=== PATIENT | male | born 1965 | race Hispanic/Latino ===

== ENCOUNTER 2017-07-29 21:50 | Emergency (ER) | payer OTHER ==
[~2017-07-29] VITALS: Ht 170.2 cm; Wt 83.5 kg
--- OUTSIDE RECORDS SUMMARY | 2017-07-29 21:53 | XMS REPORT ---
Author Author [facility] Address Unknown Phone Unavailable Care Team Providers Care Security Management Specialist Name Role Phone Unavailable Unavailable Problems This patient has no known problems. Allergies, Adverse Reactions, Alerts This patient has no known allergies or adverse reactions. Medications This patient has no known medications. Encounters Start Date/Time End Date/Time Encounter Type Admission Type Attending Clinicians Care Facility Care Department Encounter ID 2016-10-03 00:00:00 2016-10-03 00:00:00 Outpatient [facility] [id number] 2016-07-17 00:00:00 2016-07-17 00:00:00 Outpatient [facility] [id number]
== END 2017-07-29 23:10 | disposition home or self-care (01) ==
LOC: FSED 21:50
DX: R07.89 Other chest pain (principal); M54.9 Dorsalgia, unspecified; G89.29 Other chronic pain; F17.210 Nicotine dependence, cigarettes, uncomplicated
CPT/HCPCS: 71046; 99283

== ENCOUNTER 2018-05-23 14:11 | Observation (INO) | payer OTHER ==
[~2018-05-23] VITALS: Ht 170.2 cm; Wt 83.5 kg
--- OUTSIDE RECORDS SUMMARY | 2018-05-23 14:13 | XMS REPORT | Continuity of Care Document ---
Author Author [facility] Address Unknown Phone Unavailable Problems Problem Status Onset Date Classification Date Reported Comments Source Discharge Diagnosis: Back pain, chronic 07/15/2013 07/18/2013 [facility] HEAD PAIN Active 07/15/2013 [facility] 338.4 CHRONIC PAIN SYNDROME Active 07/07/2013 [facility] Acid reflux Active Problem 07/18/2013 [facility] Cholecystectomy Resolved Problem 07/18/2013 [facility] Chronic pain Active Problem 07/18/2013 [facility] Lumbar spinal fusion Resolved Problem 07/18/2013 [facility] CHRONIC PAIN SYNDROME Active [facility] Medications Medication Details Route Status Patient Instructions Ordering Provider Order Date Source Sulfamethoxazole 800 MG / Trimethoprim 160 MG Oral Tablet [Bactrim] 1 tab, PO, BID, # 20 tab, 0 Refill(s) Active 07/15/2013 [facility] Acetaminophen 325 MG / Hydrocodone Bitartrate 5 MG Oral Tablet [[place] 5/325] 1-2 tab, PO, Q4-6H, Pain, # 20 tab, 0 Refill(s) Active 07/15/2013 [facility] Acetaminophen 325 MG / Hydrocodone Bitartrate 5 MG Oral Tablet [[place] 5/325] 1-2 tab, PO, Q4-6H, Pain, # 12 tab, 0 Refill(s) Active 07/15/2013 [facility] Dilaudid 1.5 mg, Route: IM, ONCE, Dosing Weight 81.818, kg, Start date: 07/15/13 6:35:00, Stop date: 07/15/13 6:35:00 Inactive 07/15/2013 [facility] Nexium 40 mg, Route: PO, Daily, Dosing Weight 81.818, kg, Start date: 07/14/13 9:00:00, Duration: 30 day, Stop date: 08/12/13 9:00:00 No Longer Active 07/14/2013 [facility] Protonix 40 mg, 1 tab, Route: PO, Drug form: ECTAB, Daily, Start date: 07/14/13 9:00:00, Duration: 30 day, Stop date: 08/12/13 9:00:00Notes: Tablet should not be chewed or crushed. (Same as: Protonix) Inactive 07/14/2013 [facility] Ibuprofen 400 MG Oral Tablet 800 mg, 2 tab, Route: PO, Drug form: TAB, Q8H, Dosing Weight 81.818, kg, Start date: 07/14/13 0:00:00, Duration: 30 day, Stop date: 08/12/13 16:00:00Notes: (Same as: Motrin) "Do Not Crush" Give with food. Inactive 07/14/2013 [facility] 10 ML Cefazolin 100 MG/ML Prefilled Syringe 2 gm, 100 mL, Route: IVPB, Drug form: INJ, Q8H, Dosing Weight 81.818, kg, Start date: 07/13/13 19:30:00, Duration: 1 doses or times, Stop date: 07/13/13 19:30:00Notes: Same as: Ancef Inactive 07/14/2013 [facility] Hydromorphone 2.5 mg, 2.5 mL, Route: PO, Drug form: INJ, Q8H, Dosing Weight 81.818, kg, PRN as needed for pain, Start date: 07/13/13 16:46:00, Duration: 30 day, Stop date: 08/12/13 16:45:00 No Longer Active 07/13/2013 [facility] Morphine 30 mg, 30 mL, Route: IV, Initial Loading Dose: 2 mg, LITHOPRESS OPERATOR Dose: 1 mg, LITHOPRESS OPERATOR Lockout: 10 minutes, Continuous Basal Rate: 0 mg, 4 Hour Limit (In MG): 28, Drug Form: INJ, Continuous, Start date: 07/13/13 16: 30:00, Duration: 30 day, Stop date: 08/12/13 16:2...Notes: Dose: Delay: Basal rate: 4hr limit: (Same as:Addie-Trena) No Longer Active 07/13/2013 [facility] Acetaminophen 650 mg, 2 tab, Route: PO, Drug form: TAB, Q6H, Dosing Weight 81.818, kg, PRN Pain/Fever, Start date: 07/13/13 16:21:00, Duration: 30 day, Stop date: 08/12/13 16:20:00, fever & painNotes: Do not exceed 4 gm/day. (Same as: Tylenol) No Longer Active 07/13/2013 [facility] Zofran 4 mg, 2 mL, Route: IV, Drug form: INJ, Q8H, Dosing Weight 81.818, kg, PRN Nausea, Start date: 07/13/13 16:21:00, Duration: 30 day, Stop date: 08/12/13 16:20:00Notes: (Same as: Zofran) No Longer Active 07/13/2013 [facility] Acetaminophen 325 MG / Hydrocodone Bitartrate 10 MG Oral Tablet [[place] 10/325] 1 tab, Route: PO, Drug Form: TAB, Dosing Weight 81.818, kg, Q4H, PRN Pain, Start date: 07/13/13 16:21:00, Duration: 30 day, Stop date: 08/12/13 16:20:00Notes: Do not exceed 4gm/day of acetaminophen. (Same as: [place] 325/10) No Longer Active 07/13/2013 [facility] 1/2NS + KCL 20mEq/L 1000ml (Premix) 1,000 mL 1,000 mL, Rate: 75 ml/hr, Infuse over: 13.3 hr, Route: IV, Dosing Weight 81.818 kg, Total Volume: 1,000, Start date: 07/13/13 16:21:00, Duration: 30 day, Stop date: 08/12/13 16:20:00 No Longer Active 07/13/2013 [facility] Robinul 0.1 mg, Route: IV, ONCE, Dosing Weight 81.818, kg, Start date: 07/13/13 16:15:00, Stop date: 07/13/13 16:15:00 Inactive 07/13/2013 [facility] Acetaminophen 21.7 MG/ML / Hydrocodone Bitartrate 0.5 MG/ML Oral Solution 15 ml, Route: PO, Drug Form: SOLN, Dosing Weight 81.818, kg, Q4H, PRN Pain, Start date: 07/13/13 15:44:00, Duration: 30 day, Stop date: 08/12/13 15:43:00Notes: Do not exceed 4gm/day of acetaminophen. (Same as: [place] 325/7.5) Inactive 07/13/2013 [facility] Acetaminophen 1,000 mg, Route: IVPB, Drug form: INJ, ONCE, Dosing Weight 81.818, kg, PRN Pain Score 1-3, Start date: 07/13/13 15:44:00, Duration: 1 doses or times, Stop date: Limited # of times Inactive 07/13/2013 [facility] Naloxone 0.04 mg, 0.1 mL, Route: IVP, Drug form: INJ, Q2MIN, Dosing Weight 81.818, kg, PRN Narcotic Reversal, Start date: 07/13/13 15:44:00, Duration: 8 doses or times, Stop date: Limited # of timesNotes: (Same as: Narcan) Inactive 07/13/2013 [facility] Flumazenil 0.2 mg, 2 mL, Route: IVP, Drug form: INJ, PRN, Dosing Weight 81.818, kg, PRN Benzodiazepine Reversal, Initial dose, Start date: 07/13/13 15:44:00, Duration: 30 day, Stop date: 08/12/13 15:43:00Notes: (Same as: Romazicon) Inactive 07/13/2013 [facility] Ondansetron 4 mg, Route: IVP, ONCE, Dosing Weight 81.818, kg, PRN Nausea & Vomiting, Start date: 07/13/13 15:44:00 Inactive 07/13/2013 [facility] Unknown Home Medication Refill(s) 0 No Longer Active 07/13/2013 [facility] ibuprofen 800 mg oral tablet 0 Refill(s) Active 07/13/2013 [facility] Ibuprofen 0 Refill(s) Active 07/13/2013 [facility] Clonidine 0 Refill(s) No Longer Active 07/13/2013 [facility] Baclofen 0 Refill(s) No Longer Active 07/13/2013 [facility] hydromorphone 4 mg oral tablet 0 Refill(s) Active 07/11/2013 [facility] Nexium PO, Daily, 0 Refill(s) No Longer Active 07/07/2013 [facility] Allergies, Adverse Reactions, Alerts Substance Category Reaction Severity Reaction type Status Date Reported Comments Source Phenergan Assertion Drug allergy Active [facility] Immunizations Immunization Date Given Site Status Last Updated Comments Source Results Order Name Results Value Reference Range Date Interpretation Comments Source HEMATOLOGY Segs-Bands # 8.5 K/CMM 1.5 - 8.1 07/15/2013 [facility] HEMATOLOGY Basophils 0.4 % 0.0 - 1.0 07/15/2013 [facility] HEMATOLOGY Eosinophils 0.6 % 0.0 - 4.0 07/15/2013 [facility] HEMATOLOGY Segs 73.3 % 45.0 - 75.0 07/15/2013 [facility] HEMATOLOGY Monocytes # 0.3 K/CMM 0.0 - 0.8 07/15/2013 [facility] HEMATOLOGY Lymphocytes # 2.6 K/CMM 1.0 - 5.5 07/15/2013 [facility] HEMATOLOGY Monocytes 3.0 % 2.0 - 12.0 07/15/2013 [facility] HEMATOLOGY Lymphocytes 22.7 % 20.0 - 40.0 07/15/2013 [facility] HEMATOLOGY Basophils # 0.0 K/CMM 0.0 - 0.2 07/15/2013 [facility] HEMATOLOGY Eosinophils # 0.1 K/CMM 0.0 - 0.5 07/15/2013 [facility] Sed Rate 24 mm/h 0 - 15 07/15/2013 [facility] MCHC 34.3 g/dL 32.0 - 36.0 07/15/2013 [facility] MCH 34.0 pg 27.0 - 31.0 07/15/2013 [facility] Platelet 264 K/CMM 133 - 450 07/15/2013 [facility] RDW 13.6 % 11.5 - 14.5 07/15/2013 [facility] MPV 7.8 fL 7.4 - 10.4 07/15/2013 [facility] MCV 99.1 fL 80.0 - 94.0 07/15/2013 [facility] WBC 11.6 K/CMM 3.7 - 10.4 07/15/2013 [facility] Hct 34.7 % 42.0 - 54.0 07/15/2013 [facility] HEMATOLOGY RBC 3.50 M/CMM 4.70 - 6.10 07/15/2013 [facility] Hgb 11.9 g/dL 14.0 - 18.0 07/15/2013 [facility] BLOOD BANK RESULTS Antibody Scrn Negative (07/07/13 4:35 PM) 07/07/2013 [facility] BLOOD BANK RESULTS ABO/Rh B NEG 07/07/2013 [facility] ELECTROLYTES AGAP 9.6 meq/L 10.0 - 20.0 07/07/2013 [facility] ELECTROLYTES eGFR 112 mL/min/1.73m2 07/07/2013 1Result Comment: The eGFR is calculated using the CKD-EPI formula. In most young, healthy individuals the eGFR will be >90 mL/min/1.73m2. The eGFR declines with age. An eGFR of 60-89 may be normal in some populations, particularly the elderly, for whom the CKD-EPI formula has not been extensively validated. Use of the eGFR is not recommended in the following populations: Individuals with unstable creatinine concentrations, including patients and those with serious co-morbid conditions. Patients with extremes in muscle mass or diet. The data above are obtained from the National Kidney Disease Education Program (NKDEP) which additionally recommends that when the eGFR is used in patients with extremes of body mass index for purposes of drug dosing, the eGFR should be multiplied by the estimated BMI. [facility] ELECTROLYTES Calcium Lvl 9.0 mg/dL 8.5 - 10.5 07/07/2013 [facility] ELECTROLYTES Potassium Lvl 3.6 meq/L 3.5 - 5.1 07/07/2013 [facility] ELECTROLYTES Chloride Lvl 112 meq/L 95 - 109 07/07/2013 [facility] ELECTROLYTES CO2 23 meq/L 24 - 32 07/07/2013 [facility] ELECTROLYTES Creatinine Lvl 0.7 mg/dL 0.5 - 1.4 07/07/2013 [facility] ELECTROLYTES Sodium Lvl 141 meq/L 135 - 145 07/07/2013 [facility] ELECTROLYTES Glucose Lvl 102 mg/dL 70 - 99 07/07/2013 2Interpretive Data: Adult reference range values reflect the clinical guidelines of the [place] [employer]. [facility] ELECTROLYTES BUN 3 mg/dL 7 - 22 07/07/2013 [facility] HEMATOLOGY Monocytes 4.2 % 2.0 - 12.0 07/07/2013 [facility] HEMATOLOGY Segs 61.8 % 45.0 - 75.0 07/07/2013 [facility] HEMATOLOGY Lymphocytes 33.1 % 20.0 - 40.0 07/07/2013 [facility] HEMATOLOGY Eosinophils 0.6 % 0.0 - 4.0 07/07/2013 [facility] Segs-Bands # 4.2 K/CMM 1.5 - 8.1 07/07/2013 [facility] Lymphocytes # 2.2 K/CMM 1.0 - 5.5 07/07/2013 [facility] HEMATOLOGY Basophils 0.3 % 0.0 - 1.0 07/07/2013 [facility] HEMATOLOGY Monocytes # 0.3 K/CMM 0.0 - 0.8 07/07/2013 [facility] HEMATOLOGY Eosinophils # 0.0 K/CMM 0.0 - 0.5 07/07/2013 [facility] Basophils # 0.0 K/CMM 0.0 - 0.2 07/07/2013 [facility] PTT 28.1 s 22.9 - 35.8 07/07/2013 4Interpretive Data: Heparin Therapeutic Range: 57 - 92 Seconds [facility] PT 13.2 s 12.0 - 14.7 07/07/2013 [facility] INR 1.01 0.85 - 1.17 07/07/2013 3Interpretive Data: RECOMMENDED RANGES FOR PROTIME INR: 2.0-3.0 for most medical and surgical thromboembolic states. 2.5-3.5 for artificial heart valves and recurrent embolism. INR SHOULD BE USED ONLY FOR PATIENTS ON STABLE ANTICOAGULANT THERAPY. [facility] Platelet 233 K/CMM 133 - 450 07/07/2013 [facility] MCHC 35.0 g/dL 32.0 - 36.0 07/07/2013 [facility] RDW 13.5 % 11.5 - 14.5 07/07/2013 [facility] MCV 96.5 fL 80.0 - 94.0 07/07/2013 [facility] MCH 33.8 pg 27.0 - 31.0 07/07/2013 [facility] MPV 8.5 fL 7.4 - 10.4 07/07/2013 [facility] Hct 34.3 % 42.0 - 54.0 07/07/2013 [facility] Hgb 12.0 g/dL 14.0 - 18.0 07/07/2013 [facility] RBC 3.55 M/CMM 4.70 - 6.10 07/07/2013 [facility] WBC 6.8 K/CMM 3.7 - 10.4 07/07/2013 [facility] IMMUNOLOGY HIV 1/2 Ab Negative *NA* (07/07/13 4:35 PM) Negative 07/07/2013 [facility] Vital Signs Vital Sign Value Date Comments [facility] Systolic (mm Hg) 129 07/15/2013 [facility] Diastolic (mm Hg) 82 07/15/2013 [facility] Heart Rate 57 07/15/2013 [facility] Respitory Rate 18 07/15/2013 [facility] Temperature Oral (F) 98.2 F 07/15/2013 [facility] Height 170.18 cm 07/15/2013 [facility] BMI Calculated 28.25 07/15/2013 [facility] Weight 81.818 07/15/2013 [facility] Heart Rate 64 07/15/2013 [facility] Diastolic (mm Hg) 80 07/15/2013 [facility] Temperature Oral (F) 98.4 F 07/15/2013 [facility] Respitory Rate 16 07/15/2013 [facility] Systolic (mm Hg) 145 07/15/2013 [facility] Diastolic (mm Hg) 62 07/14/2013 [facility] Systolic (mm Hg) 108 07/14/2013 [facility] Temperature Oral (F) 97.9 F 07/14/2013 [facility] Respitory Rate 16 07/14/2013 [facility] Heart Rate 40 07/14/2013 [facility] Temperature Oral (F) 98.0 F 07/14/2013 [facility] Respitory Rate 16 07/14/2013 [facility] Heart Rate 44 07/14/2013 [facility] Systolic (mm Hg) 110 07/14/2013 [facility] Diastolic (mm Hg) 64 07/14/2013 [facility] Systolic (mm Hg) 96 07/14/2013 [facility] Respitory Rate 16 07/14/2013 [facility] Heart Rate 43 07/14/2013 [facility] Temperature Oral (F) 97.8 F 07/14/2013 [facility] Diastolic (mm Hg) 46 07/14/2013 [facility] BMI Calculated 28.25 07/14/2013 [facility] Weight 81.818 07/14/2013 [facility] Height 170.18 cm 07/14/2013 [facility] Weight 81.818 07/07/2013 [facility] BMI Calculated 28.25 07/07/2013 [facility] Height 170.18 cm 07/07/2013 [facility] Encounters Location Location Details Encounter Type Encounter Number Reason For Visit Attending Provider ADM Date DC Date Status Source [facility] Inpatient [id number] Manuel Isaac 07/13/2013 07/14/2013 [facility] [id number] Bintamichael Hernandez 07/15/2013 07/15/2013 [facility] Procedures Procedure Code Date Perfomer Comments Source Excision of gallbladder [id number] [facility] Intrathecal injection [id number] [facility] Lumbar spinal fusion [id number] [facility]
--- OUTSIDE RECORDS SUMMARY | 2018-05-23 14:13 | XMS REPORT | Summary of Care ---
Author Organization Unknown Address Unknown Phone Unavailable Encounter JEANNIE Cabral(NIA) [id number] Date(s): 07/15/13 - 07/15/[address] Discharge Diagnosis: Back pain, chronic Discharge Disposition: Home Physician Attending: Binta Hernandez MD Reason for Visit HEAD PAIN Vital Signs Most recent to 1 2 oldest [Reference Range]: Height 170.18 cm (07/15/13 4:43 AM) Temperature Oral 98.2 DegF 98.4 DegF [96.4-99.1 DegF] (07/15/13 9:46 AM) (07/15/13 4:43 AM) Systolic Blood 129 mmHg 145 mmHg Pressure [90-140 (07/15/13 9:46 AM) *HI* mmHg] (07/15/13 4:43 AM) Diastolic Blood 82 mmHg 80 mmHg Pressure [60-90 (07/15/13 9:46 AM) (07/15/13 4:43 AM) mmHg] Respiratory Rate 18 BRMIN 16 BRMIN [14-20 BRMIN] (07/15/13 9:46 AM) (07/15/13 4:43 AM) Peripheral Pulse 57 bpm 64 bpm Rate [60-100 bpm] *LOW* (07/15/13 4:43 AM) (07/15/13 9:46 AM) Weight 81.818 kg (07/15/13 4:43 AM) Body Mass Index 28.25 m2 (07/15/13 4:43 AM) Problem List Condition Effective Dates Status Health Status Informant Acid Active reflux(Confirmed) Cholecystectomy(Conf Resolved irmed) Chronic Active pain(Confirmed) Lumbar spinal Resolved fusion(Confirmed) Allergies, Adverse Reactions, Alerts Substance Reaction Severity Status Phenergan Active Medications Bactrim DS oral tablet 1 tab, PO, BID, # 20 tab, 0 Refill(s) Start Date: 07/15/13 Stop Date: 07/25/13 Status: Ordered Dilaudid 1.5 mg, Route: IM, ONCE, Dosing Weight 81.818, kg, Start date: 07/15/13 6:35:00, Stop date: 07/15/13 6:35:00 Start Date: 07/15/13 Stop Date: 07/15/13 Status: Completed [place] 5/325 oral tablet 1-2 tab, PO, Q4-6H, Pain, # 20 tab, 0 Refill(s) Start Date: 07/15/13 Stop Date: 07/20/13 Status: Ordered [place] 5/325 oral tablet 1-2 tab, PO, Q4-6H, Pain, # 12 tab, 0 Refill(s) Start Date: 07/15/13 Stop Date: 07/20/13 Status: Ordered Results HEMATOLOGY Most recent to 1 oldest [Reference Range]: WBC [3.7-10.4 K/CMM] 11.6 K/CMM *HI* (07/15/13 6:55 AM) RBC [4.70-6.10 3.50 M/CMM M/CMM] *LOW* (07/15/13 6:55 AM) Hgb [14.0-18.0 g/dL] 11.9 g/dL *LOW* (07/15/13 6:55 AM) Hct [42.0-54.0 %] 34.7 % *LOW* (07/15/13 6:55 AM) MCV [80.0-94.0 fL] 99.1 fL *HI* (07/15/13 6:55 AM) MCH [27.0-31.0 pg] 34.0 pg *HI* (07/15/13 6:55 AM) MCHC [32.0-36.0 34.3 g/dL g/dL] (07/15/13 6:55 AM) RDW [11.5-14.5 %] 13.6 % (07/15/13 6:55 AM) Platelet [133-450 264 K/CMM K/CMM] (07/15/13 6:55 AM) MPV [7.4-10.4 fL] 7.8 fL (07/15/13 6:55 AM) Segs [45.0-75.0 %] 73.3 % (07/15/13 6:55 AM) Lymphocytes 22.7 % [20.0-40.0 %] (07/15/13 6:55 AM) Monocytes [2.0-12.0 3.0 % %] (07/15/13 6:55 AM) Eosinophils [0.0-4.0 0.6 % %] (07/15/13 6:55 AM) Basophils [0.0-1.0 0.4 % %] (07/15/13 6:55 AM) Segs-Bands # 8.5 K/CMM [1.5-8.1 K/CMM] *HI* (07/15/13 6:55 AM) Lymphocytes # 2.6 K/CMM [1.0-5.5 K/CMM] (07/15/13 6:55 AM) Monocytes # [0.0-0.8 0.3 K/CMM K/CMM] (07/15/13 6:55 AM) Eosinophils # 0.1 K/CMM [0.0-0.5 K/CMM] (07/15/13 6:55 AM) Basophils # [0.0-0.2 0.0 K/CMM K/CMM] (07/15/13 6:55 AM) Sed Rate [0-15 24 mm/hr mm/hr] *HI* (07/15/13 6:55 AM) Medications Administered During Your Visit No data available for this section Immunizations No data available for this section Social History Social History Type Response Alcohol Use: Never, Has alcohol use interfered with work or home life? No, Do you ever drink more than intended? No, Has anyone been hurt or at risk by your drinking? No, Ready to change: No, Concerns about alcohol use in household: No Smoking Status Current every day smoker, Type: Cigarettes, Previous treatment: None, Ready to change: No, Concerns about tobacco use in household: No, Exposure to Tobacco Smoke None, Cigarette Smoking Last 365 Days Yes, Reg Smoking Cessation Counseling No1 1CESSATION EDUCATION GIVEN
--- OUTSIDE RECORDS SUMMARY | 2018-05-23 14:13 | XMS REPORT | Summary of Care ---
Author Organization Unknown Address Unknown Phone Unavailable Encounter [facility] [place](NIA) [id number] Date(s): 07/13/13 - 07/14/[address] Discharge Disposition: Home Physician Attending: Manuel Isaac MD Physician Admitting: Manuel Isaac MD Physician_Referring: Manuel Isaac MD Reason for Visit 338.4 CHRONIC PAIN SYNDROME Vital Signs 1 2 3 Most recent to oldest [Reference Range]: 170.18 cm (07/13/13 8:55 PM) 170.18 cm (07/07/13 4:42 PM) Height 97.9 DegF (07/14/13 8:59 AM) 98.0 DegF (07/14/13 4:00 AM) 97.8 DegF (07/14/13 12:00 AM) Temperature Oral [96.4-99.1 DegF] 108 mmHg (07/14/13 8:59 AM) 110 mmHg (07/14/13 4:00 AM) 96 mmHg (07/14/13 12:00 AM) Systolic Blood Pressure [90-140 mmHg] 62 mmHg (07/14/13 8:59 AM) 64 mmHg (07/14/13 4:00 AM) 46 mmHg *LOW* (07/14/13 12:00 AM) Diastolic Blood Pressure [60-90 mmHg] 16 BRMIN (07/14/13 8:59 AM) 16 BRMIN (07/14/13 4:00 AM) 16 BRMIN (07/14/13 12:00 AM) Respiratory Rate [14-20 BRMIN] 40 bpm *LOW* (07/14/13 8:59 AM) 44 bpm *LOW* (07/14/13 4:00 AM) 43 bpm *LOW* (07/14/13 12:00 AM) Peripheral Pulse Rate [60-100 bpm] 81.818 kg (07/13/13 8:55 PM) 81.818 kg (07/07/13 4:42 PM) Weight 28.25 m2 (07/13/13 8:55 PM) 28.25 m2 (07/07/13 4:42 PM) Body Mass Index Problem List Condition Effective Dates Status Health Status Informant Acid Active reflux(Confirmed) Cholecystectomy(Conf Resolved irmed) Chronic Active pain(Confirmed) Lumbar spinal Resolved fusion(Confirmed) Allergies, Adverse Reactions, Alerts Substance Reaction Severity Status Phenergan Active Medications 1/2NS + KCL 20mEq/L 1000ml (Premix) 1,000 mL 1,000 mL, Rate: 75 ml/hr, Infuse over: 13.3 hr, Route: IV, Dosing Weight 81.818 kg, Total Volume: 1,000, Start date: 07/13/13 16:21:00, Duration: 30 day, Stop d ate: 08/12/13 16:20:00 Start Date: 07/13/13 Stop Date: 07/14/13 Status: Discontinued acetaminophen 1,000 mg, Route: IVPB, Drug form: INJ, ONCE, Dosing Weight 81.818, kg, PRN Pain Score 1-3, Start date: 07/13/13 15:44:00, Duration: 1 doses or times, Stop date: Limited # of times Start Date: 07/13/13 Stop Date: 07/13/13 Status: Completed acetaminophen 650 mg, 2 tab, Route: PO, Drug form: TAB, Q6H, Dosing Weight 81.818, kg, PRN Erika n/Fever, Start date: 07/13/13 16:21:00, Duration: 30 day, Stop date: 08/12/13 16 :20:00, fever & pain Notes: Do not exceed 4 gm/day. (Same as: Tylenol) Start Date: 07/13/13 Stop Date: 07/14/13 Status: Discontinued acetaminophen-hydrocodone 325 mg-7.5 mg/15 mL oral solution 15 ml, Route: PO, Drug Form: SOLN, Dosing Weight 81.818, kg, Q4H, PRN Pain, Star t date: 07/13/13 15:44:00, Duration: 30 day, Stop date: 08/12/13 15:43:00 Notes: Do not exceed 4gm/day of acetaminophen. (Same as: [place] 325/7.5) Start Date: 07/13/13 Stop Date: 07/13/13 Status: Discontinued baclofen 0 Refill(s) Start Date: 07/13/13 Stop Date: 07/14/13 Status: Discontinued ceFAZolin (SCIP) 2 gm, 100 mL, Route: IVPB, Drug form: INJ, Q8H, Dosing Weight 81.818, kg, Start date: 07/13/13 19:30:00, Duration: 1 doses or times, Stop date: 07/13/13 19:30:0 0 Notes: Same as: Ancef Start Date: 07/13/13 Stop Date: 07/13/13 Status: Completed cloNIDine 0 Refill(s) Start Date: 07/13/13 Stop Date: 07/14/13 Status: Discontinued flumazenil 0.2 mg, 2 mL, Route: IVP, Drug form: INJ, PRN, Dosing Weight 81.818, kg, PRN Umair zodiazepine Reversal, Initial dose, Start date: 07/13/13 15:44:00, Duration: 30 day, Stop date: 08/12/13 15:43:00 Notes: (Same as: Romazicon) Start Date: 07/13/13 Stop Date: 07/13/13 Status: Discontinued hydromorphone 2.5 mg, 2.5 mL, Route: PO, Drug form: INJ, Q8H, Dosing Weight 81.818, kg, PRN as needed for pain, Start date: 07/13/13 16:46:00, Duration: 30 day, Stop date: 16:45:00 Start Date: 07/13/13 Stop Date: 07/14/13 Status: Discontinued hydromorphone 4 mg oral tablet 0 Refill(s) Start Date: 07/11/13 Status: Ordered ibuprofen 0 Refill(s) Start Date: 07/13/13 Status: Ordered ibuprofen 400 mg oral tablet 800 mg, 2 tab, Route: PO, Drug form: TAB, Q8H, Dosing Weight 81.818, kg, Start d ate: 07/14/13 0:00:00, Duration: 30 day, Stop date: 08/12/13 16:00:00 Notes: (Same as: Motrin)"Do Not Crush" Give with food. Start Date: 07/14/13 Stop Date: 07/14/13 Status: Discontinued ibuprofen 800 mg oral tablet 0 Refill(s) Start Date: 07/13/13 Status: Ordered morphine 1 mg/ml [employer] (30 mg/30 mL) INJ Syringe 30 mg 30 mg, 30 mL, Route: IV, Initial Loading Dose: 2 mg, [employer] WORKER Dose: 1 mg, M[employer] WORKER Lockou t: 10 minutes, Continuous Basal Rate: 0 mg, 4 Hour Limit (In MG): 28, Drug Form: INJ, Continuous, Start date: 07/13/13 16:30:00, Duration: 30 day, Stop date: 16:2... Notes: Dose: Delay: Basal rate: 4hr limit:( Same as:Trudy) Start Date: 07/13/13 Stop Date: 07/14/13 Status: Discontinued naloxone 0.04 mg, 0.1 mL, Route: IVP, Drug form: INJ, Q2MIN, Dosing Weight 81.818, kg, HI N Narcotic Reversal, Start date: 07/13/13 15:44:00, Duration: 8 doses or times, Stop date: Limited # of times Notes: (Same as: Narcan) Start Date: 07/13/13 Stop Date: 07/13/13 Status: Discontinued NexIUM 40 mg, Route: PO, Daily, Dosing Weight 81.818, kg, Start date: 07/14/13 9:00:00, Duration: 30 day, Stop date: 08/12/13 9:00:00 Start Date: 07/14/13 Stop Date: 07/13/13 Status: Deleted NexIUM PO, Daily, 0 Refill(s) Start Date: 07/07/13 Stop Date: 07/14/13 Status: Discontinued [place] Joe 10/325 oral tablet 1 tab, Route: PO, Drug Form: TAB, Dosing Weight 81.818, kg, Q4H, PRN Pain, Start date: 07/13/13 16:21:00, Duration: 30 day, Stop date: 08/12/13 16:20:00 Notes: Do not exceed 4gm/day of acetaminophen. (Same as: [place] 325/10) Start Date: 07/13/13 Stop Date: 07/14/13 Status: Discontinued ondansetron 4 mg, Route: IVP, ONCE, Dosing Weight 81.818, kg, PRN Nausea & Vomiting, Start date: 07/13/13 15:44:00 Start Date: 07/13/13 Stop Date: 07/13/13 Status: Completed Protonix 40 mg, 1 tab, Route: PO, Drug form: ECTAB, Daily, Start date: 07/14/13 9:00:00, Duration: 30 day, Stop date: 08/12/13 9:00:00 Notes: Tablet should not be chewed or crushed.(Same as: Protonix) Start Date: 07/14/13 Stop Date: 07/14/13 Status: Discontinued Robinul 0.1 mg, Route: IV, ONCE, Dosing Weight 81.818, kg, Start date: 07/13/13 16:15:00 , Stop date: 07/13/13 16:15:00 Start Date: 07/13/13 Stop Date: 07/13/13 Status: Completed Unknown Home Medication Refill(s) 0 Start Date: 07/13/13 Stop Date: 07/14/13 Status: Discontinued Zofran 4 mg, 2 mL, Route: IV, Drug form: INJ, Q8H, Dosing Weight 81.818, kg, PRN Nausea , Start date: 07/13/13 16:21:00, Duration: 30 day, Stop date: 08/12/13 16:20:00 Notes: (Same as: Zofran) Start Date: 07/13/13 Stop Date: 07/14/13 Status: Discontinued Zofran 4 mg, 1 tab, Route: PO, Drug form: TAB, Q8H, Dosing Weight 81.818, kg, PRN Nause a, Start date: 07/13/13 16:21:00, Duration: 30 day, Stop date: 08/12/13 16:20:00 Notes: (Same as: Zofran) Start Date: 07/13/13 Stop Date: 07/14/13 Status: Discontinued Results BLOOD BANK RESULTS Most recent to 1 oldest [Reference Range]: ABO/Rh B NEG *Unknown* (07/07/13 4:35 PM) Antibody Scrn Negative (07/07/13 4:35 PM) ELECTROLYTES Most recent to 1 oldest [Reference Range]: Sodium Lvl [135-145 141 mEq/L mEq/L] (07/07/13 4:35 PM) Potassium Lvl 3.6 mEq/L [3.5-5.1 mEq/L] (07/07/13 4:35 PM) Chloride Lvl [95-109 112 mEq/L mEq/L] *HI* (07/07/13 4:35 PM) CO2 [24-32 mEq/L] 23 mEq/L *LOW* (07/07/13 4:35 PM) AGAP [10.0-20.0 9.6 mEq/L mEq/L] *LOW* (07/07/13 4:35 PM) CHEM PANEL Most recent to 1 oldest [Reference Range]: Creatinine Lvl 0.7 mg/dL [0.5-1.4 mg/dL] (07/07/13 4:35 PM) eGFR 112 mL/min/1.73m2 1 *NA* (07/07/13 4:35 PM) BUN [7-22 mg/dL] 3 mg/dL *LOW* (07/07/13 4:35 PM) Glucose Lvl [70-99 102 mg/dL 2 mg/dL] *HI* (07/07/13 4:35 PM) Calcium Lvl 9.0 mg/dL [8.5-10.5 mg/dL] (07/07/13 4:35 PM) 1Result Comment: The eGFR is calculated using [...] from the National Kid[employer] Disease Education Program ( NKDEP) which additionally recommends that when the eGFR is used in patients with extremes of body mass index for purposes of drug dosing, the eGFR should be mul tiplied by the estimated BMI. 2Interpretive Data: Adult reference range values reflect the clinical guidelines of the [place] [employer]. IMMUNOLOGY Most recent to 1 oldest [Reference Range]: HIV 1/2 Ab Negative [Negative] *NA* (07/07/13 4:35 PM) HEMATOLOGY Most recent to 1 oldest [Reference Range]: WBC [3.7-10.4 K/CMM] 6.8 K/CMM (07/07/13 4:35 PM) RBC [4.70-6.10 3.55 M/CMM M/CMM] *LOW* (07/07/13 4:35 PM) Hgb [14.0-18.0 g/dL] 12.0 g/dL *LOW* (07/07/13 4:35 PM) Hct [42.0-54.0 %] 34.3 % *LOW* (07/07/13 4:35 PM) MCV [80.0-94.0 fL] 96.5 fL *HI* (07/07/13 4:35 PM) MCH [27.0-31.0 pg] 33.8 pg *HI* (07/07/13 4:35 PM) MCHC [32.0-36.0 35.0 g/dL g/dL] (07/07/13 4:35 PM) RDW [11.5-14.5 %] 13.5 % (07/07/13 4:35 PM) Platelet [133-450 233 K/CMM K/CMM] (07/07/13 4:35 PM) MPV [7.4-10.4 fL] 8.5 fL (07/07/13 4:35 PM) Segs [45.0-75.0 %] 61.8 % (07/07/13 4:35 PM) Lymphocytes 33.1 % [20.0-40.0 %] (07/07/13 4:35 PM) Monocytes [2.0-12.0 4.2 % %] (07/07/13 4:35 PM) Eosinophils [0.0-4.0 0.6 % %] (07/07/13 4:35 PM) Basophils [0.0-1.0 0.3 % %] (07/07/13 4:35 PM) Segs-Bands # 4.2 K/CMM [1.5-8.1 K/CMM] (07/07/13 4:35 PM) Lymphocytes # 2.2 K/CMM [1.0-5.5 K/CMM] (07/07/13 4:35 PM) Monocytes # [0.0-0.8 0.3 K/CMM K/CMM] (07/07/13 4:35 PM) Eosinophils # 0.0 K/CMM [0.0-0.5 K/CMM] (07/07/13 4:35 PM) Basophils # [0.0-0.2 0.0 K/CMM K/CMM] (07/07/13 4:35 PM) PT [12.0-14.7 13.2 seconds seconds] (07/07/13 4:35 PM) INR [0.85-1.17] 1.01 3 (07/07/13 4:35 PM) PTT [22.9-35.8 28.1 seconds 4 seconds] (07/07/13 4:35 PM) 3Interpretive Data: RECOMMENDED RANGES FOR PROTIME INR: 2.0-3.0 for most medical and surgical thromboembolic states. 2.5-3.5 for artificial heart valves and recurrent embolism. INR SHOULD BE USED ONLY FOR PATIENTS ON STABLE ANTICOAGULANT THERAPY. 4Interpretive Data: Heparin Therapeutic Range: 57 - 92 Seconds Medications Administered During Your Visit No data available for this section Immunizations No data available for this section Procedures Procedure Type Body Site Date of Procedure Related Diagnosis Excision of gallbladder Intrathecal injection Lumbar spinal fusion Social History Social History Type Response Alcohol [...]
[2018-05-23] MEDS ORDERED: SODIUM CHLORIDE 0.9% 1000ML 1,000 ML IV STA (14:20)
[2018-05-23] MEDS ORDERED: MORPHINE S30 MG/30 M (14:22)
[2018-05-23] MEDS ORDERED: ASPIRIN 81 MG CHEW TAB PO ONE (14:30)
--- NOTE | 2018-05-23 14:45 | NUR ---
Yosi estes in ED - 05/23/18 at 1515 by ANDRE ECHOVASCULAR AT [facility] FOR EXAM AT THIS TIME.
[2018-05-23 14:46] LABS: BASOPHILS # (AUTO) 0.1 (0.0-0.1); BASOPHILS % 0.5 % (0.0-1.0); EOSINOPHILS # (AUTO) 0.1 (0.0-0.4); EOSINOPHILS % 1.1 % (0.0-6.0); HEMATOCRIT 40.4 % (38.2-49.6); HEMOGLOBIN 13.7 g/dL (14.0-18.0); LYMPHOCYTES # (AUTO) 4.8 (1.0-3.2); LYMPHOCYTES % 46.2 % (18.0-39.1); MEAN CORPUSCULAR HEMOGLOBIN 33.2 pg (28-32); MEAN CORPUSCULAR HGB CONC 33.9 g/dL (31-35); MEAN CORPUSCULAR VOLUME 97.8 fL (81-99); MONOCYTES # (AUTO) 0.5 (0.2-0.8); MONOCYTES % 4.9 % (4.4-11.3); NEUTROPHILS # (AUTO) 4.9 (2.1-6.9); PLATELET COUNT 336 x10e3/uL (140-360); RED BLOOD COUNT 4.13 x10e6/uL (4.3-5.7); RED CELL DISTRIBUTION WIDTH 11.6 % (11.7-14.4)
[2018-05-23 14:51] LABS: INR 0.99; PROTHROMBIN TIME 13.6 seconds (11.9-14.5)
[2018-05-23 14:52] LABS: PARTIAL THROMBOPLASTIN TIME 28.1 seconds (23.8-35.5)
--- NOTE | 2018-05-23 14:52 | Diagnostic Imaging Report ---
EXAMINATION: PA and lateral views of the chest. COMPARISON: None CLINICAL HISTORY: chest pain DISCUSSION: Lines/tubes: None. Lungs: The lungs are well inflated and clear. No pneumonia or pulmonary edema. Pleura: No pleural effusion or pneumothorax. Heart and mediastinum: The cardiomediastinal silhouette is normal. Bones and soft tissues: No acute bony abnormalities. IMPRESSION: No acute cardiopulmonary abnormalities. Signed by: Dr. Jerry Macias M.D. on 05/23/2018 2:48 PM
[2018-05-23 15:00] LABS: ALANINE AMINOTRANSFERASE 24 IU/L (0-55); ALBUMIN 4.3 g/dL (3.5-5.0); ALKALINE PHOSPHATASE 89 IU/L (40-150); ANION GAP 13.5 mmol/L (8-16); BLOOD UREA NITROGEN 19 mg/dL (7-26); BUN/CREATININE RATIO 20 (6-25); CARBON DIOXIDE 24 mmol/L (22-29); CHLORIDE 110 mmol/L (98-107); CREATINE KINASE 123 IU/L (30-200); CREATININE, SERUM 0.93 mg/dL (0.72-1.25); EST GLOMERULAR FILTRATION RATE > 60 ML/MIN (60-); GLUCOSE 112 mg/dL (74-118); POTASSIUM 3.5 mmol/L (3.5-5.1); SODIUM 144 mmol/L (136-145)
[2018-05-23] MEDS ORDERED: CEFTRIAXONE SOD 1 GM/NS 50 ML 50 ML IV ONE (15:00)
[2018-05-23 15:37] LABS: B-TYPE NATRIURETIC PEPTIDE2 < 10.0 pg/mL (0-100)
[2018-05-23] MEDS ORDERED: CYCLOBENZAPRINE HCL 10 MG TAB ONE (15:43)
[2018-05-23 15:55] LABS: CLARITY,URINE HAZY (CLEAR); COLOR,URINE YELLOW (YELLOW); LEUKOCYTE ESTERASE ,URINE NEGATIVE (NEGATIVE)
[2018-05-23 15:56] LABS: BILIRUBIN,URINE NEGATIVE (NEGATIVE); KETONES,URINE NEGATIVE (NEGATIVE); NITRITE,URINE NEGATIVE (NEGATIVE); PROTEIN,URINE DIPSTICK NEGATIVE (NEGATIVE); URINE UROBILINOGEN 0.2 mg/dL (0.2 - 1)
[2018-05-23] MEDS ORDERED: AZITHROMYCIN 500MG/NS 250 ML 250 ML IV ONE (16:00)
[2018-05-23] MEDS ORDERED: CYCLOBENZAPRINE HCL 10 MG TAB PO ONE (16:00)
[2018-05-23] MEDS ORDERED: KETOROLAC TROMETHAMINE 30 MG/ML VIAL IV ONE (16:00)
[2018-05-23 16:03] LABS: BACTERIA,URINE FEW /HPF; EPITHELIAL CELLS,URINE MODERATE /LPF; RBC,URINE 0-5 /HPF (0-5); WBC,URINE (MAN) 0-5 /HPF (0-5)
[2018-05-23] MEDS ORDERED: ONDANSETRON HCL INJ 2MG/ML 2ML 2 MG/ML VIAL IV PRN (16:30)
[2018-05-23] MEDS ORDERED: MORPHINE SULFATE INJ 4 MG/ML INJ 1ML IV PRN (16:30)
[2018-05-23] MEDS ORDERED: PANTOPRAZOLE 40 MG 10ML VIAL IV ONE (17:00)
--- NOTE | 2018-05-23 17:04 | NUR ---
pt states his chest no longer hurts
--- NOTE | 2018-05-23 17:12 | NUR ---
per pt has history of low bp
--- NOTE | 2018-05-23 19:19 | NUR ---
RECEIVED BEDSIDE REPORT FROM ZENON ELIAS DAY SHIFT NURSE.
[2018-05-23 22:55] LABS: CREATINE KINASE MB 0.7 ng/mL (0-5.0)
[2018-05-24 05:35] LABS: BASOPHILS # (AUTO) 0.1 (0.0-0.1); BASOPHILS % 0.4 % (0.0-1.0); EOSINOPHILS # (AUTO) 0.2 (0.0-0.4); HEMATOCRIT 37.4 % (38.2-49.6); HEMOGLOBIN 12.5 g/dL (14.0-18.0); LYMPHOCYTES # (AUTO) 5.8 (1.0-3.2); LYMPHOCYTES % 50.8 % (18.0-39.1); MEAN CORPUSCULAR HEMOGLOBIN 33.2 pg (28-32); MEAN CORPUSCULAR HGB CONC 33.4 g/dL (31-35); MEAN CORPUSCULAR VOLUME 99.2 fL (81-99); MONOCYTES # (AUTO) 0.6 (0.2-0.8); NEUTROPHILS # (AUTO) 4.8 (2.1-6.9); NEUTROPHILS % 41.5 % (38.7-80.0); PLATELET COUNT 286 x10e3/uL (140-360); RED BLOOD COUNT 3.77 x10e6/uL (4.3-5.7); RED CELL DISTRIBUTION WIDTH 11.8 % (11.7-14.4)
[2018-05-24 05:58] LABS: ALANINE AMINOTRANSFERASE 20 IU/L (0-55); ALBUMIN 3.5 g/dL (3.5-5.0); ALKALINE PHOSPHATASE 76 IU/L (40-150); ANION GAP 10.7 mmol/L (8-16); BLOOD UREA NITROGEN 24 mg/dL (7-26); BUN/CREATININE RATIO 29 (6-25); CALCIUM 9.1 mg/dL (8.4-10.2); CARBON DIOXIDE 23 mmol/L (22-29); CHLORIDE 113 mmol/L (98-107); CHOL/HDL RATIO 4.9 (3.9-4.7); CHOLESTEROL 185 MD/DL (0-199); CREATININE, SERUM 0.83 mg/dL (0.72-1.25); EST GLOMERULAR FILTRATION RATE > 60 ML/MIN (60-); GLUCOSE 105 mg/dL (74-118); HDL CHOLESTEROL 38 MG/DL (40-60); LDL CHOLESTEROL 123 MG/DL (60-130); POTASSIUM 3.7 mmol/L (3.5-5.1); SODIUM 143 mmol/L (136-145); TRIGLYCERIDES 122 MG/DL (0-149)
[2018-05-24 06:18] LABS: CREATINE KINASE MB 0.7 ng/mL (0-5.0)
--- NOTE | 2018-05-24 07:04 | NUR ---
REPORT GIVEN TO ZENON ELIAS DAY SHIFT NURSE.
[2018-05-24] MEDS ORDERED: PANTOPRAZOLE 40 MG 10ML VIAL IV SCH (09:00)
[2018-05-24] MEDS ORDERED: ASPIRIN 81 MG ENTERIC COATED PO SCH (09:00)
--- NOTE | 2018-05-24 11:41 | NUR ---
PER PT HE JUST WANTS TO GO HOME PT STATES HE FEELS FINE AND DOESN'T WANT TO BE HERE PT REQUESTS NURSE TO CONTACT MD IN REGARDS TO D/C FROM ER
[2018-05-24 13:16] VITALS: BP 146/83
--- NOTE | 2018-05-24 13:16 | NUR ---
PT INFORMED HE OF HIS ROOM ASSIGNMENT AND PT DECLINED STATING HE JUST WANTS TO GO HOME AMA; PT PROVIDED INFO REGARDING AMA EDUCATED ON RISK/BENEFITS OF AMA AND TOLD OF MD STILL WANTING TO SEE HIM; PT STATES HE UNDERSTANDS BUT STILL WANTS TO LEAVE AMA; PT SIGNED AMA DOCUMENT AFTER EXPLANATION AND VITALS UPDATED; DR DOUGLAS CALLED TO BE INFORMED OF PT LEAVING AMA AND CHARGE NURSE AWARE OF PT LEAVING AMA
== END 2018-05-24 12:48 | disposition left against medical advice (07) ==
LOC: ER 14:11 → ERHOLD 16:20
PROVIDERS: ADMIT Internal Medicine; ATTEND Internal Medicine
DX: R07.89 Other chest pain (principal); E78.5 Hyperlipidemia, unspecified; F17.210 Nicotine dependence, cigarettes, uncomplicated
CPT/HCPCS: 36415 ×2; 71046; 80053 ×2; 80061; 81001; 82550 ×2; 82553 ×2; 83605; 83880; 84484 ×2; 85025 ×2; 85379; 85610; 85730; 87040; 87086; 87400; 93005; 99284; C9113 ×2; G0378 ×2; J1885; J2405